=== PATIENT | male | born 1980 | race Caucasian/White ===

== ENCOUNTER 2025-06-25 22:35 | Emergency (ER) | payer OTHER, SELFPAY ==
[2025-06-25 22:38] VITALS: BP 138/93; PULSE 97; RESP 18; TEMP 36.6; O2SAT 100
--- NOTE | 2025-06-25 22:47 | PC.NURSE ---
Pt reports I am going to leave. I did not want to come anyway. Pt has a ride coming. pt VSS. pt ambulated out of ED in no acute distress. pt advised to follow up with pcp or come back to ED
== END 2025-06-26 00:37 | disposition left against medical advice (07) ==
DX: R07.9 Chest pain, unspecified (principal)
CPT/HCPCS: 99199